=== PATIENT | female | born 2000 | race Hispanic/Latino ===

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

== ENCOUNTER 2020-03-28 14:51 | Outpatient (CLI) | payer OTHER ==
--- NOTE | 2020-03-28 15:13 | ULT ---
EXAM: US Breast Limited Lt PROVIDED CLINICAL HISTORY: Left breast mass COMPARISON: 09/04/2019 FINDINGS: Limited sonographic interrogation was performed of the left breast in the region of previously descri bed mass. No significant interval change in size with respect to the prior is demonstrated. IMPRESSION: Findings most compatible with fibroadenoma, unchanged from prior.
== END 2020-03-28 14:52 | disposition home or self-care (01) ==
LOC: BICULT 14:51
PROVIDERS: ATTEND Obstetrics & Gynecology
DX: D24.9 Benign neoplasm of unspecified breast (principal)